=== PATIENT | male | born 1955 | race Caucasian/White ===

== ENCOUNTER 2024-04-03 07:05 | Emergency (ER) | payer MEDICARE, OTHER, SELFPAY ==
[2024-04-03 07:08] VITALS: BP 168/105
[2024-04-03] MEDS: TORADOL 15 MG IV (07:39)
[2024-04-03] MEDS: NSS 1000 IV (07:40)
[2024-04-03 08:00] VITALS: BP 131/77
[2024-04-03 08:14] LABS: % Basophils 0.7 % (0-2); % Eosinophils 0.9 % (0-6); % Immature Granulocytes 0.2 % (0-0.5); % Lymphocytes 17.3 % (20.5-51.1); % Monocytes 10.3 % (1.7-9.3); % Neutrophils 70.6 % (42.2-75.2); Absolute Basophils 0.1 10^3/uL (0-0.2); Absolute Eosinophils 0.1 10^3/uL (0-0.7); Absolute Lymphocytes 1.5 10^3/uL (1.2-3.4); Absolute Monocytes 0.9 10^3/uL (0.1-0.6); Absolute Neutrophils 6.2 10^3/uL (1.4-6.5); Hematocrit 46.9 % (39.0-52.0); Hemoglobin 16.7 g/dL (13.0-18.0); Mean Corp Hgb Conc. 35.6 g/dL (33.0-37.0); Mean Corpuscular Hgb 31.9 pg (27.0-31.0); Mean Corpuscular Volume 89.5 fL (80.0-94.0); Mean Platelet Volume 9.5 fL (7.4-10.4); Nucleated Red Blood Cells % 0 % (-); Platelet Count 267 10^3/uL (130-400); Red Blood Cell Count 5.24 10^6/uL (4.70-6.10); Red Cell Dist. Width 13.8 % (11.5-14.5); White Blood Cell Count 8.8 10^3/uL (4.8-10.8)
[2024-04-03 08:19] LABS: ALT (SGPT) 47 U/L (0-50); AST (SGOT) 39 U/L (17-59); Albumin 4.6 g/dl (3.5-5.0); Alkaline Phosphatase 83 U/L (38-126); Blood Urea Nitrogen 18 mg/dl (9-20); Calcium 10.1 mg/dl (8.4-10.2); Carbon Dioxide 27 mmol/L (22-30); Chloride 105 mmol/L (98-107); Glucose 104 mg/dl (70-99); Potassium 4.1 mmol/L (3.5-5.1); Sodium 138 mmol/L (135-145); Total Bilirubin 0.8 mg/dl (0.2-1.3); Total Protein 7.5 g/dl (6.3-8.2); eGFR > 60.00
--- NOTE | 2024-04-03 08:20 | ED.GENMED ---
History of Present Illness
General
Chief Complaint: Flank Pain
Source: patient
Exam Limitations: none
Time Seen by Provider: 04/03/24 07:11
Nursing documentation reviewed up to this point in time: agreed with
History of Present Illness
History of Present Illness:
68-year-old male with past medical history of CAD hypertension hyperlipidemia previous stents presenting to the emergency department today with concerns of right-sided flank discomfort starting suddenly yesterday ongoing today some mild urinary
symptoms no nausea vomiting fevers or chills
Past History
Past History
ED Past Medical History: CAD, COPD and Other (Kidney stones)
ED Past Surgical History: Cardiac
Social History
Tobacco: Smoker
Alcohol: Occasional
Drug: None
Personal:
Living: alone
Employment: Employed
Family History
Family History: Other (Noncontributory)
Review of Systems
Review of Systems
Allergies reviewed?: Yes
All Other Systems: ROS reviewed and negative except as documented in HPI and ROS
Phy Exam
Physical Exam
Physical Exam:
GENERAL: Alert , in no apparent distress
EYE: pupils equal and reactive
NECK: Supple, no significant adenopathy.
ENT: o/p clr, mmm.
CARDIAC: Regular rate and rhythm .
LUNGS: Clear breath sounds bilaterally, no acute respiratory distress, no wheezes/rales/rhonchi
ABDOMEN: Soft, without focal tenderness, no r/g, no cvat
NEUROLOGICAL: Alert and oriented, no focal neuro deficits
SKIN: Warm and dry, skin intact.
MUSCULOSKELETAL: No edema, well perfused.
PSYCH: Normal and appropriate interaction.
Course
Orders/Labs/Results
Orders:
Orders
04/03/24 07:31
CT Abd/pel Without Iv Or Oral Urgent
Comment:
Reason For Exam: right flank p ain, hx of stones
0.9% Sodium Chloride 1000 ml [Nss] 1,000 ml IV BOLUS
Ketorolac [Toradol] 15 mg IV NOW STA
04/03/24 07:42
Complete Blood Count/With Diff Urgent
Comprehensive Metabolic Panel Urgent
04/03/24 07:57
Urinalysis Reflex To Culture Urgent
Date Specimen was Collected: 04/03/24
Time Specimen was Collected: 07:54
Abnormal Lab Results
04/03/24
07:42
MCH 31.9 H pg
(27.0-31.0)
Absolute Monos (auto) 0.9 H 10^3/uL
(0.1-0.6)
Lymphocytes % 17.3 L %
(20.5-51.1)
Monocytes % 10.3 H %
(1.7-9.3)
Glucose 104 H mg/dl
(70-99)
04/03/24 07:42
04/03/24 07:42
Vital Signs
Initial and Last Documented VS:
Initial Vital Signs
Temp Pulse Resp BP Pulse Ox
98.2 F 87 16 168/105 97
04/03/24 07:08 04/03/24 07:08 04/03/24 07:08 04/03/24 07:08 04/03/24 07:08
Last Documented Vital Signs
Temp Pulse Resp BP Pulse Ox
98.2 F 87 16 131/77 92
04/03/24 07:08 04/03/24 07:08 04/03/24 07:08 04/03/24 08:00 04/03/24 08:15
MDM/Problems Addressed
MDM/Problems Addressed:
68-year-old male presenting to the emergency department today with concerns of sudden onset right-sided flank discomfort yesterday morning ongoing today here no distress no reproducible pain initial blood pressure elevated but improving after pain
control. Labs without acute abnormalities. CT scan without emergent findings there was a 3.5 cm AAA. Patient was notified of this and will follow-up closely as an outpatient. Otherwise symptoms are likely mechanical in origin. Advised for close
outpatient follow-up. Return precautions given.
*Critical Care Note
Total Time (30-74mins, 75-104mins- exclusive of procedures): Not Applicable
ED Attending Note
-
Portions of this chart may have been created with voice recognition software.� Occasional wrong word or��sound alike� substitutions may have occurred due to the inherent limitations of voice recognition software.
Discharge Plan
Departure
Patient Disposition: Home (Routine Discharge)
Date of Disposition: 04/03/24
Time of Disposition: 09:03
Patient with high blood pressure during this ER visit?: No
Condition: Good
Covid-19: Not Applicable
Discharge Problem:
Low back pain
Instructions: Low Back Pain ED
Prescriptions:
No Action
lisinopril 10 MG tablet
20 mg PO DAILY
rosuvastatin 10 MG tablet
5 mg PO QPM
multivitamin [Multi-Day] 1 EACH tablet
1 ea PO DAILY
cyanocobalamin (vitamin B-12) 1,000 MCG tablet
3,000 mcg PO DAILY
hydrochlorothiazide 25 MG tablet
25 mg PO DAILY
aspirin 81 MG tablet,chewable
81 mg PO DAILY
[id number]-[id number]-givnemm-ast [Mega[employer] [place]-3 [employer]ill Oil] 1 EACH capsule
1 ea PO DAILY
clopidogrel 75 MG tablet
75 mg PO DAILY Qty: 90 3RF
nitroglycerin 0.4 MG tablet, sublingual
0.4 mg sublingual [id number] PRN (Reason: chest pain) Qty: 25 2RF
hydrocodone-acetaminophen 1 TABLET tablet
1 tab PO Q4HPRN PRN (Reason: pain) Qty: 10 0RF
Referrals:
Mikal Howell III, MD [Active] - Follow up in 5-7 days
Asha Hendricks DO [Family Provider] -
Activity Restrictions/Additional Instructions:
You came to the emergency department today with concerns of low back pain. This is likely a mechanical pain. You are also found to have an incidental finding of an abdominal aortic aneurysm. Please follow closely with vascular surgery for
reassessment of this. Return to the emergency department for any worsening, new or concerning symptoms.
Interventions
Interventions:
*Risk Screen - Suicide Last Done: 04/03/24 07:08
*General Assessment Last Done: 04/03/24 07:08
*Neglect/Abuse Screening Last Done: 04/03/24 07:08
ED- Fall Risk Assessment Last Done: 04/03/24 07:06
ZQ-Nmttdk-Ktliawekdu Assessment Last Done: 04/03/24 07:06
ED-Male Genitourinary Assessment Last Done: 04/03/24 07:06
Discharge Date and Time
Print Language: BAHAMIAN
[2024-04-03 08:36] LABS: Urine Albumin Negative (Neg - Trace); Urine Bilirubin Negative (Negative); Urine Character Clear (Clear); Urine Color Yellow; Urine Glucose Negative (Negative); Urine Ketone Negative (Negative); Urine Leukocyte Negative (Negative); Urine Nitrite Negative (Negative); Urine Occult Blood Negative (Negative); Urine Urobilinogen Negative (Neg - 1+); Urine pH 6.5 (5.0-9.0)
[2024-04-03 09:00] VITALS: BP 142/84
== END 2024-04-03 09:10 | disposition home or self-care (01) ==
LOC: EMR 07:05
PROVIDERS: Physician Assistant; EMERGENCY PHYSICIAN Emergency Medicine; FAMILY PHYSICIAN Family Medicine
DX: R10.9 Unspecified abdominal pain (principal); I25.10 Atherosclerotic heart disease of native coronary artery without angina pectoris; J44.9 Chronic obstructive pulmonary disease, unspecified; E78.00 Pure hypercholesterolemia, unspecified; I10 Essential (primary) hypertension; F17.200 Nicotine dependence, unspecified, uncomplicated; Z87.442 Personal history of urinary calculi
CPT/HCPCS: 99284; 96374; 96361; 74176; 80053; 81003; 85025

== ENCOUNTER → 2024-11-13 09:50 | Outpatient (REF) | payer MEDICARE, OTHER, SELFPAY | LOC: HWRAD 09:50 | PROVIDERS: ATTENDING PHYSICIAN Nurse Practitioner Adult Health; FAMILY PHYSICIAN Family Medicine | DX: Z87.891 Personal history of nicotine dependence (principal) | CPT/HCPCS: 71271 ==

== ENCOUNTER → 2024-12-09 06:22 | Outpatient (REF) | payer MEDICARE, OTHER, SELFPAY ==
[2024-12-09 08:24] LABS: ALT (SGPT) 46 U/L (0-50); AST (SGOT) 36 U/L (17-59); Albumin 4.4 g/dl (3.5-5.0); Alkaline Phosphatase 112 U/L (38-126); Blood Urea Nitrogen 19 mg/dl (9-20); Carbon Dioxide 25 mmol/L (22-30); Chloride 106 mmol/L (98-107); Glucose 110 mg/dl (70-99); HDL Cholesterol 46 mg/dl; LDL Cholesterol, Calculated 62 mg/dl; Potassium 3.9 mmol/L (3.5-5.1); Sodium 143 mmol/L (135-145); Total Bilirubin 0.8 mg/dl (0.2-1.3); Total Cholesterol 145 mg/dl (50-199); Total Protein 7.3 g/dl (6.3-8.2); Triglyceride 185 mg/dl (10-149); Very Low Density Lipoprotein 37 mg/dl (0-30); eGFR > 60.00
[2024-12-11 14:08] LABS: PSA Total 10.9 ng/mL (0.0-4.0)
== END ==
LOC: REG 06:22
PROVIDERS: ATTENDING PHYSICIAN Internal Medicine Cardiovascular Disease; FAMILY PHYSICIAN Family Medicine; REFERRING PHYSICIAN Specialist
DX: E78.2 Mixed hyperlipidemia (principal); R97.20 Elevated prostate specific antigen [PSA]
CPT/HCPCS: 36415; 80053; 80061; 84153; 84154

== ENCOUNTER → 2025-03-05 08:24 | Outpatient (REF) | payer MEDICARE, OTHER, SELFPAY | LOC: MRI 3T 08:24 | PROVIDERS: ATTENDING PHYSICIAN Specialist; FAMILY PHYSICIAN Family Medicine | DX: R97.20 Elevated prostate specific antigen [PSA] (principal) | CPT/HCPCS: 72197; A9575 ==

== ENCOUNTER → 2025-04-28 09:00 | Outpatient (REF) | payer MEDICARE, OTHER, SELFPAY | LOC: RAD 09:00 | PROVIDERS: ATTENDING PHYSICIAN Family Medicine | DX: I83.893 Varicose veins of bilateral lower extremities with other complications (principal) | CPT/HCPCS: 93971 ==